=== PATIENT | female | born 1980 | race Caucasian/White ===

== ENCOUNTER 2018-12-02 09:02 | Day surgery (SDC) | payer OTHER ==
[2015-03-01 09:31] VITALS: BP 90/47
[~2018-12-02 09:02] MED LIST: LACTATED RINGERS 1,000 ML IV.SOLN IV ONE; LIDOCAINE HCL 2% PF 100MG/5ML VIAL IJ ONE; PROPOFOL 200 MG/20 ML VIAL IV ONE
--- NOTE | 2018-12-17 13:50 | GI Report ---
PROCEDURE PERFORMED: Colonoscopy. SURGEON: Socorro Soriano M.D., F.A.C.P. INDICATION FOR PROCEDURE: The patient has a family history of 2 second degree relatives, grandparents, with colon cancer and a first degree relative. In addition, the patient had a polyp removed back in 2011 in her sigmoid colon. She denies any interval change in bowel habits or bleeding. PROCEDURE MEDICATION: Propofol, as per Anesthesia. DESCRIPTION OF PROCEDURE: The Olympus video pediatric colonoscope was advanced into the rectum. The colonoscope was slowly advanced to the cecum. The patient has a slightly atonic, redundant colon. The appendiceal orifice was normal. The terminal ileum was normal. On slow withdrawal, the cecum, ascending colon no obvious intraluminal lesions were noted. The descending colon and sigmoid again redundancy, no obvious intraluminal lesions noted. In the sigmoid particularly we went back and forth and saw no evidence of any residual polyp. Retroflexion in the rectum was normal. The patient tolerated the procedure well. FINDINGS: Atonic, redundant colon but no polyps were noted. RECOMMENDATIONS: 1. Continue high fiber diet. 2. Consider relooking at her colon in 5 years just because of high risk family history unless there is some interval change. SOCORRO SORIANO M.D., F.A.C.P. DERRICK/suzanne R: 12/16/18 Job#: [id number] Cc: Sonia Garsia M.D. [id number] [place] [address] Sent via ] [email or web address]
== END 2018-12-02 11:17 | disposition home or self-care (01) ==
LOC: OPSURG 09:02
PROVIDERS: ATTEND Internal Medicine Gastroenterology
DX: K59.8 Other specified functional intestinal disorders (principal); Z80.0 Family history of malignant neoplasm of digestive organs; Z86.010 Personal history of colon polyps
CPT/HCPCS: 45378; J2001; J2704; J7120; S1016